=== PATIENT | female | born 1990 | race American Indian/Alaskan Native ===

== ENCOUNTER 2016-03-24 17:50 | Emergency (ER) | payer SELFPAY ==
[2016-03-24] MEDS ORDERED: BICILLIN L-A IM ONE (23:14)
[2016-03-24] MEDS ORDERED: MOTRIN PO ONE (23:14)
--- NOTE | 2016-03-24 23:18 | Emergency Department Report ---
HPI - General Chief Complaint: Sore Throat Time Seen by Provider: 03/24/16 23:02 - HPI HPI: 25-year-old female past medical history none presents with complaint of one- week of sore throat, body aches. Patient states that over the last 2 days she has had mild whitish discharge and vagina, not like cottage cheese, no vaginal bleeding, no dysuria, no increased urinary frequency, no hematuria. Patient states that her children have tested positive for strep throat and we treated this week. Patient speaking in full sentences, not in acute distress. ED Past Medical Hx - Past Medical History Hx Hypertension: No Hx Congestive Heart Failure: No Hx Diabetes: No Hx Deep Vein Thrombosis: No Hx Renal Disease: No Hx Sickle Cell Disease: No Hx Seizures: No Hx Asthma: No Hx COPD: No Hx HIV: No - Surgical History Additional Surgical History: BILATERAL EYE SURGERY (CHILD), vaginal delivery - Social History Smoking Status: Never Smoker Substance Use Type: None - Medications Home Medications: Home Medications Medication Instructions Recorded Confirmed Last Taken Type Ferrous Sulfate [Feosol 325 MG tab] 325 mg PO BID #60 tablet 05/10/15 Unknown Rx HYDROcodone/APAP 5-325 [[place] 1 each PO Q6HR PRN #30 tablet 05/10/15 Unknown Rx 5/325] Ibuprofen [Motrin 600 MG tab] 600 mg PO Q6H PRN #30 tablet 05/10/15 Unknown Rx Vit-Fe Fumar-FA [ 1 each PO QDAY #30 tablet 05/10/15 Unknown Rx Vitamin] Clotrimazole [Xcst-Kzvhewal-2] 1 applicator VG QHS #1 cream.appl 03/24/16 Unknown Rx Fluticasone [Flonase] 1 spray NS QDAY #1 bottle 03/24/16 Unknown Rx Ibuprofen [Motrin] 600 mg PO Q8H PRN #25 tablet 03/24/16 Unknown Rx Ibuprofen [Motrin] 600 mg PO Q8H PRN #25 tablet 03/24/16 Unknown Rx metroNIDAZOLE [Flagyl TAB] 500 mg PO Q12HR #14 tab 03/24/16 Unknown Rx ED Review of Systems ROS: Stated complaint: SORE THROAT/ABD PAIN Other details as noted in HPI Constitutional: malaise. denies: chills, fever Eyes: denies: eye pain, eye discharge, vision change ENT: throat pain. denies: ear pain Respiratory: denies: cough, shortness of breath, wheezing Cardiovascular: denies: chest pain, palpitations Endocrine: no symptoms reported Gastrointestinal: denies: abdominal pain, nausea, diarrhea Genitourinary: discharge (mild whitish vaginal discharge). denies: urgency, dysuria Musculoskeletal: denies: back pain, joint swelling, arthralgia Skin: denies: rash, lesions Neurological: denies: headache, weakness, paresthesias Psychiatric: denies: anxiety, depression Hematological/Lymphatic: denies: easy bleeding, easy bruising Physical Exam - Physical Exam Vital Signs: Vital Signs 03/24/16 18:44 Temperature 98.8 F Pulse Rate 95 H Respiratory 18 Rate Blood Pressure 111/71 O2 Sat by Pulse 100 Oximetry General: General: Well appearing, well nourished, in no distress. Oriented x 3, normal mood and affect . Ambulating without difficulty. Head: Normocephalic, atraumatic, no visible or palpable masses, depressions, or scaring. Eyes: Visual acuity intact, conjunctiva clear, sclera non-icteric, EOM intact, PERRL Ears: EACs clear, TMs translucent & mobile, ossicles nl appearance, hearing intact. Nose: No external lesions, mucosa non-inflamed, septum and turbinates normal Mouth: Mucous membranes moist, no mucosal lesions. Pharynx: Mucosa mildy inflamed, no tonsillar hypertrophy or exudates Neck: + mild cervical adenopathy b/l Heart: No cardiomegaly or thrills; regular rate and rhythm, no murmur or gallop Lungs: Clear to auscultation and percussion Abdomen: Bowel sounds normal, no tenderness, organomegaly, masses, or hernia Back: Spine normal without deformity or tenderness, no CVA tenderness Musculoskeletal: Normal gait and station. No misalignment, asymmetry, crepitation, defects, tenderness, masses, effusions, decreased range of motion, instability, atrophy or abnormal strength or tone in the head, neck, spine, ribs, pelvis or extremities. Neurologic: CN 2-12 normal. Sensation to pain, touch, and proprioception normal. DTRs normal in upper and lower extremities. No pathologic reflexes. Psychiatric: Oriented X3, intact recent and remote memory, judgment and insight , normal mood and affect. ED Course Vital Signs 03/24/16 18:44 Temperature 98.8 F Pulse Rate 95 H Respiratory 18 Rate Blood Pressure 111/71 O2 Sat by Pulse 100 Oximetry ED Medical Decision Making - Medical Decision Making A/P: Pharyngitis, vaginitis 1-will treat empirically as patient has multiple positive contacts for strep throat pharyngitis 2-Motrin and lozenges when necessary 3-metronidazole and clotrimazole for empiric tx of BV/ possible candidiasis 4-all primary care in [place] Critical care attestation.: If time is entered above; I have spent that time in minutes in the direct care of this critically ill patient, excluding procedure time. ED Disposition Clinical Impression: Vaginitis Qualifiers: Chronicity: acute Qualified Code(s): N76.0 - Acute vaginitis Disposition: DISCHARGED TO HOME OR SELFCARE Is pt being admited?: No Does the pt Need Aspirin: No Condition: Stable Instructions: Bacterial Vaginosis (ED), Pharyngitis (ED) Prescriptions: Clotrimazole [Mnat-Wvmcvhjb-3] 1 applicator VG QHS #1 cream.appl metroNIDAZOLE [Flagyl TAB] 500 mg PO Q12HR #14 tab Fluticasone [Flonase] 1 spray NS QDAY #1 bottle Ibuprofen [Motrin] 600 mg PO Q8H PRN #25 tablet PRN Reason: Pain Ibuprofen [Motrin] 600 mg PO Q8H PRN #25 tablet PRN Reason: Pain Referrals: PRIMARY CARE, [Primary Care Provider] - 3-5 Days [facility] [Outside] - 3-5 Days [facility] [Provider Group] - 3-5 Days Forms: Work/School Release Form(ED), Accompanied Note
[2016-03-25 00:14] VITALS: BP 121/71
== END 2016-03-25 00:14 | disposition home or self-care (01) ==
LOC: ED 17:50
DX: N76.0 Acute vaginitis (principal)
CPT/HCPCS: 96372; 99282; J0561